=== PATIENT | female | born 1995 | race Caucasian/White ===

== ENCOUNTER 2020-09-10 20:11 | Emergency (ER) | payer OTHER ==
[2020-09-10 20:16] VITALS: BP 170/88; PULSE 108; RESP 20; TEMP 97.9
[2020-09-10] MEDS ORDERED: ACETAMINOPHEN TAB 325 MG TAB PO STA (20:37)
[2020-09-10] MEDS ORDERED: IBUPROFEN 600 MG STARTER PACK 4 TAB BTL PO STA (20:37)
--- NOTE | 2020-09-10 21:06 | ED ---
General Adult HPI - General Chief complaint: Fall Stated complaint: R ARM PAIN FELL IN PARKING STRUCTURE Time Seen by Provider: 09/10/20 20:24 Source: patient Mode of arrival: ambulatory - History of Present Illness Initial comments: 25 year-old female patient presents to the emergency department for evaluation of right wrist pain and right elbow pain that started after a fall today just prior to 7pm. Patient states she tripped off of a curb and fell with arm outstretched. She is having pain in her wrist and left elbow. 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 States she is having some tingling in her fingers. States she has increased pain with range of motion but does not have any limitations. Denies any head, neck, or back injury. Denies chance of . Patient denies any headache, neck pain, back pain, chest pain, shortness of breath, dizziness, weakness, abdominal pain, nausea, vomiting, or difficulties with bowel movements or urination. - Related Data Allergies Allergy/AdvReac Type Severity Reaction Status Date / Time No Known Allergies Allergy Verified 09/10/20 20:16 Review of Systems ROS Statement: Those systems with pertinent positive or pertinent negative responses have been documented in the HPI. ROS Other: All systems not noted in ROS Statement are negative. Past Medical History Past Medical History: No Reported History History of Any Multi-Drug Resistant Organisms: None Reported Past Surgical History: No Surgical Hx Reported Past Psychological History: No Psychological Hx Reported Smoking Status: Never smoker Past Alcohol Use History: None Reported Past Drug Use History: None Reported General Exam General appearance: alert, in no apparent distress, other (This a well- developed, well-nourished adult female patient in no acute distress. Vital signs upon presentation are temperature 97.9F, pulse 108, respirations 20, blood pressure 170/88, pulse ox 98% on room air.) Head exam: Present: atraumatic, normocephalic, normal inspection ENT exam: Present: normal exam, normal oropharynx, mucous membranes moist Neck exam: Present: normal inspection, full ROM, other (Nontender, no step-off, no deformity to firm midline palpation of the posterior cervical spine. Full range of motion without pain or limitation.). Absent: tenderness, meningismus, lymphadenopathy Respiratory exam: Present: normal lung sounds bilaterally. Absent: respiratory distress, wheezes, rales, rhonchi, stridor Cardiovascular Exam: Present: regular rate, normal rhythm, normal heart sounds. Absent: systolic murmur, diastolic murmur, rubs, gallop, clicks Extremities exam: Present: normal inspection, full ROM, tenderness (Right Anatomical snuffbox, right distal radius and ulna. Right Elbow.), normal capillary refill, other (Skin to the right arm is pink, warm, dry. Cap refill less than 3 seconds. Radial pulses 2+.). Absent: pedal edema, joint swelling, calf tenderness Back exam: Present: normal inspection. Absent: vertebral tenderness Neurological exam: Present: alert, oriented X3, CN II-XII intact Psychiatric exam: Present: normal affect, normal mood Skin exam: Present: warm, dry, intact, normal color. Absent: rash Course Vital Signs 09/10/20 20:14 Temperature 97.9 F Pulse Rate 108 H Respiratory 20 Rate Blood Pressure 170/88 O2 Sat by Pulse 98 Oximetry Procedures - Orthopedic Splinting/Casting Injury #1 Side: right Upper Extremity Injury Location: short arm, wrist Upper Extremity Immobilizer: thumb spica, Mumtaz wrap, synthetic pre-padded splint Additional Comments: Neurovascular status intact after splint application. Skin to the hands pink, warm, dry. Cap refill less than 3 seconds. Patient denies numbness or tingling currently. Medical Decision Making - Medical Decision Making 25-year-old female patient presents the emergency department today for evaluation of right wrist pain and right elbow pain after experiencing a fall. Physical examination revealed right anatomical snuffbox tenderness. She did have full range of motion with no limitation. No soft tissue swelling, no e cchymosis, no abrasion. X-rays were obtained of the right elbow and the wrist. X-rays were negative for acute fracture. Given anatomical snuffbox tenderness she was placed in a thumb spica splint will be discharged to follow-up with orthopedics as soon as possible. She is instructed to leave the splint in place until follow-up. Return parameters were discussed in detail. She verbalizes understanding and agrees with this plan. My attending is Dr. Mark. - Radiology Data Radiology results: report reviewed, image reviewed 4 views of the right wrist are obtained. Report was reviewed in its entirety. Impression by Dr. Rendon shows negative right wrist exam. 3 views of the right elbow obtained. Report was reviewed in its entirety. Impression by Dr. Rendon shows negative right elbow exam. Disposition Clinical Impression: Wrist pain, Sprain of right elbow Disposition: HOME SELF-CARE Condition: Good Instructions (If sedation given, give patient instructions): Wrist Injury (ED), Elbow Sprain (ED) Additional Instructions: Use Mumtaz wrap for comfort is appropriate. Lives with the place until follow-up with orthopedics. Take Tylenol Motrin for pain control. Apply ice to the painful areas. Return to the emergency department for any new, worsening, or concerning symptoms. Is patient prescribed a controlled substance at d/c from ED?: No Referrals: Henry Ramirez DO [Primary Care Provider] - 1-2 days Antione Quinonez DO [Doctor of Osteopathic Medicine] - 1-2 days Time of Disposition: 21:30
--- NOTE | 2020-09-10 21:13 | XR ---
EXAMINATION TYPE: XR wrist complete RT DATE OF EXAM: 09/10/2020 COMPARISON: NONE HISTORY: Pain TECHNIQUE: 4 views FINDINGS: Carpal bones are intact. I see no fracture nor dislocation. Joint spaces are normal. Metaca rpals are intact. Scaphoid appears normal. IMPRESSION: Negative right wrist exam.
--- NOTE | 2020-09-10 21:25 | XR ---
EXAMINATION TYPE: XR elbow complete RT DATE OF EXAM: 09/10/2020 COMPARISON: NONE HISTORY: Elbow pain TECHNIQUE: 3 views FINDINGS: I see no fracture nor dislocation. Joint spaces are normal. There are no pathologic calcifi cations. There is no evidence of elbow joint effusion. IMPRESSION: Negative right elbow exam.
== END 2020-09-10 21:40 | disposition home or self-care (01) ==
LOC: EC 20:11
DX: S53.401A Unspecified sprain of right elbow, initial encounter (principal); W01.0XXA Fall on same level from slipping, tripping and stumbling without subsequent striking against object, initial encounter
CPT/HCPCS: 29125; 99283

== ENCOUNTER → 2020-12-28 | Outpatient (CLI) | payer MEDICAID | END | disposition home or self-care (01) | LOC: LABWHC1 10:34 | PROVIDERS: ATTEND Emergency Medicine | DX: Z20.822 Contact with and (suspected) exposure to COVID-19 (principal) | CPT/HCPCS: 87635; C9803 ==

== ENCOUNTER → 2021-05-11 | Outpatient (CLI) | payer MEDICAID, OTHER | END | disposition home or self-care (01) | LOC: LABWHC1 09:14 | PROVIDERS: ATTEND Emergency Medicine | DX: U07.1 COVID-19 (principal) | CPT/HCPCS: 87635 ==

== ENCOUNTER 2021-10-11 12:15 | Emergency (ER) | payer SELFPAY ==
[2021-10-11 12:31] VITALS: TEMP 98
[2021-10-11] MEDS ORDERED: SODIUM CHLORIDE 0.9% 1,000 ML IV ONE (15:10)
[2021-10-11] MEDS ORDERED: ACETAMINOPHEN TAB 325 MG TAB PO STA (15:10)
[2021-10-11 15:52] LABS: Basophils # (A) 0.1 k/uL (0-0.2); Basophils % (A) 0 %; Eosinophils # (A) 0.2 k/uL (0-0.7); Eosinophils % (A) 1 %; HCT 40.2 % (34.0-46.0); HGB 12.4 gm/dL (11.4-16.0); Lymphocytes # (A) 2.2 k/uL (1.0-4.8); Lymphocytes % (A) 18 %; MCH 26.4 pg (25.0-35.0); MCHC 30.8 g/dL (31.0-37.0); MCV 85.7 fL (80.0-100.0); Mean Platelet Volume 7.9; Monocytes # (A) 0.5 k/uL (0-1.0); Monocytes % (A) 4 %; Neutrophils # (A) 9.6 k/uL (1.3-7.7); Neutrophils % (A) 76 %; Platelet Count 312 k/uL (150-450); RBC 4.69 m/uL (3.80-5.40); RDW 14.5 % (11.5-15.5); WBC 12.7 k/uL (3.8-10.6)
[2021-10-11 16:14] LABS: ALT 19 U/L (4-34); AST 22 U/L (14-36); African American GFR (CKD) >90 (>60 ml/min/1.73 sqM); Albumin 4.2 g/dL (3.5-5.0); Alkaline Phosphatase 40 U/L (38-126); Anion Gap 8 mmol/L; Blood Urea Nitrogen 7 mg/dL (7-17); Budding Yeast,Urine Many /hpf; Calcium 8.8 mg/dL (8.4-10.2); Carbon Dioxide 23 mmol/L (22-30); Chloride 106 mmol/L (98-107); Glucose 92 mg/dL (74-99); Non-African American GFR(CKD) >90 (>60 ml/min/1.73 sqM); Potassium 3.9 mmol/L (3.5-5.1); RBC,Urine >182 /hpf (0-5); Sodium 137 mmol/L (137-145); Squamous Epithelial Cell,Urine 3 /hpf (0-4); Total Bilirubin 0.3 mg/dL (0.2-1.3); Total Protein 7.2 g/dL (6.3-8.2)
--- NOTE | 2021-10-11 16:17 | US ---
EXAMINATION TYPE: US transvaginal DATE OF EXAM: 10/11/2021 COMPARISON: NONE CLINICAL HISTORY: heavy vaginal bleeding. TECHNIQUE: Transvaginal (TV). Date of LMP: 10-10-21 EXAM MEASUREMENTS: Uterus: 8.3 x 4.0 x 4.6 cm Endometrial Stripe: 0.8 cm Right Ovary: 2.8 x 1.7 x 1.8 cm Left Ovary: 3.1 x 2.6 x 2.5 cm 1. Uterus: Anteverted 2. Endometrium: wnl 3. Right Ovary: wnl 4. Left Ovary: wnl 5. Bilateral Adnexa: wnl 6. Posterior cul-de-sac: wnl Heterogeneous uterus. Endometrial stripe measures 8 mm in thickness which is upper limits of normal f or proliferative phase of menstrual cycle. No free fluid. Both ovaries are seen and normal and symmetric in size. No concerning adnexal masses noted. IMPRESSION: Source of patient's symptoms of heavy vaginal bleeding not clearly identified.
[2021-10-11 16:29] LABS: Appearance,Urine Bloody (Clear)
[2021-10-11 16:30] LABS: Color,Urine Red
[2021-10-11 16:35] LABS: HCG,Quantitative Serum <2.4 mIU/mL
[2021-10-11] MEDS ORDERED: FLUCONAZOLE 150 MG TAB PO STA (17:09)
--- NOTE | 2021-10-11 17:11 | ED ---
General Adult HPI - General Chief complaint: Vaginal Bleeding Stated complaint: Female Time Seen by Provider: 10/11/21 14:59 Source: patient Mode of arrival: ambulatory Limitations: no limitations - History of Present Illness Initial comments: Patient is a 26-year-old female presenting with chief complaint of vaginal bleeding. Patient states that for the last 5 weeks she has had heavy vaginal bleeding every other week. She states that today she is having to change her heavy flow tampons every hour and is passing large clots. She states that she did take Levonorgestrel prior to these episodes. She admits to pelvic cramping. She denies any upper abdominal pain, chest pain, shortness of breath, nausea, vomiting, dysuria, flank pain, purulent vaginal discharge, fever, chills, diarrhea, constipation, hematochezia, melena. - Related Data Home Medications Medication Instructions Recorded Confirmed No Known Home Medications 10/11/21 10/11/21 Allergies Allergy/AdvReac Type Severity Reaction Status Date / Time No Known Allergies Allergy Verified 10/11/21 17:42 Review of Systems ROS Statement: Those systems with pertinent positive or pertinent negative responses have been documented in the HPI. ROS Other: All systems not noted in ROS Statement are negative. Past Medical History Past Medical History: No Reported History History of Any Multi-Drug Resistant Organisms: None Reported Past Surgical History: No Surgical Hx Reported Past Psychological History: No Psychological Hx Reported Smoking Status: Never smoker Past Alcohol Use History: None Reported Past Drug Use History: None Reported General Exam Limitations: no limitations General appearance: alert, in no apparent distress Head exam: Present: atraumatic, normocephalic, normal inspection Eye exam: Present: normal appearance, EOMI. Absent: scleral icterus Neck exam: Present: normal inspection Respiratory exam: Present: normal lung sounds bilaterally. Absent: respiratory distress, wheezes, rales, rhonchi, stridor Cardiovascular Exam: Present: regular rate, normal rhythm, normal heart sounds. Absent: systolic murmur, diastolic murmur, rubs, gallop, clicks GI/Abdominal exam: Present: soft, normal bowel sounds. Absent: distended, tenderness, guarding, rebound, rigid External exam: Present: normal external exam Speculum exam: Present: normal speculum exam, vaginal bleeding (1.5 swabs used to wipe away blood for visualization) By manual exam: Present: normal by manual exam. Absent: cervical motion tenderness, adnexal tenderness Back exam: Present: normal inspection. Absent: CVA tenderness (R), CVA tenderness (L) Neurological exam: Present: alert, oriented X3, CN II-XII intact Psychiatric exam: Present: normal affect, normal mood Skin exam: Present: warm, dry, intact, normal color. Absent: rash Course Vital Signs 10/11/21 10/11/21 10/11/21 12:29 15:43 18:07 Temperature 98 F Pulse Rate 94 97 87 Respiratory 20 15 16 Rate Blood Pressure 192/90 135/74 130/83 O2 Sat by Pulse 99 98 100 Oximetry Medical Decision Making - Medical Decision Making Patient is a 26-year-old female presenting with chief complaint of heavy vaginal bleeding. This has been going on for every other week for the past 5 weeks. She admits to pelvic cramping and passing large clots. Lab work shows no signs of anemia, urine shows yeast. Transvaginal ultrasound is unremarkable. Pelvic exam shows no signs of hemorrhaging, there is no cervical motion tenderness or adnexal tenderness. Patient educated on these findings, sent out STI testing. Patient was treated for yeast infection. She appears stable for discharge with outpatient follow-up at this time. Follow-up with [facility] and PCP in one to 2 days. Report back to ER if any worsening symptoms. Patient conveyed verbal understanding and agreed to the plan. I discussed this case with my attending Dr. Dallas. - Lab Data Result diagrams: 10/11/21 15:20 10/11/21 15:20 Lab Results 10/11/21 10/11/21 10/11/21 Range/Units 15:20 15:20 15:20 WBC 12.7 H (3.8-10.6) k/uL RBC 4.69 (3.80-5.40) m/uL Hgb 12.4 (11.4-16.0) gm/dL Hct 40.2 (34.0-46.0) % MCV 85.7 (80.0-100.0) fL MCH 26.4 (25.0-35.0) pg MCHC 30.8 L (31.0-37.0) g/dL RDW 14.5 (11.5-15.5) % Plt Count 312 (150-450) k/uL MPV 7.9 Neutrophils % 76 % Lymphocytes % 18 % Monocytes % 4 % Eosinophils % 1 % Basophils % 0 % Neutrophils # 9.6 H (1.3-7.7) k/uL Lymphocytes # 2.2 (1.0-4.8) k/uL Monocytes # 0.5 (0-1.0) k/uL Eosinophils # 0.2 (0-0.7) k/uL Basophils # 0.1 (0-0.2) k/uL Sodium (137-145) mmol/L Potassium (3.5-5.1) mmol/L Chloride (98-107) mmol/L Carbon Dioxide (22-30) mmol/L Anion Gap mmol/L BUN (7-17) mg/dL Creatinine (0.52-1.04) mg/dL Est GFR (CKD-EPI)AfAm (>60 ml/min/1.73 sqM) Est GFR (CKD-EPI)NonAf (>60 ml/min/1.73 sqM) Glucose (74-99) mg/dL Calcium (8.4-10.2) mg/dL Total Bilirubin (0.2-1.3) mg/dL AST (14-36) U/L ALT (4-34) U/L Alkaline Phosphatase (38-126) U/L Total Protein (6.3-8.2) g/dL Albumin (3.5-5.0) g/dL HCG, Quant mIU/mL Urine Color Red Urine Appearance Bloody H (Clear) Urine RBC >182 H (0-5) /hpf Ur Squamous Epith Cells 3 (0-4) /hpf Urine Yeast (Budding) Many H (None) /hpf Urine HCG, Qual Not Detected (Not Detectd) Trichomonas Ag (Rapid) (Negative) Blood Type Blood Type Confirm Blood Type Recheck Bld Type Recheck Status Antibody Screen Spec Expiration Date 10/11/21 10/11/21 10/11/21 Range/Units 15:20 15:25 15:34 WBC (3.8-10.6) k/uL RBC (3.80-5.40) m/uL Hgb (11.4-16.0) gm/dL Hct (34.0-46.0) % MCV (80.0-100.0) fL MCH (25.0-35.0) pg MCHC (31.0-37.0) g/dL RDW (11.5-15.5) % Plt Count (150-450) k/uL MPV Neutrophils % % Lymphocytes % % Monocytes % % Eosinophils % % Basophils % % Neutrophils # (1.3-7.7) k/uL Lymphocytes # (1.0-4.8) k/uL Monocytes # (0-1.0) k/uL Eosinophils # (0-0.7) k/uL Basophils # (0-0.2) k/uL Sodium 137 (137-145) mmol/L Potassium 3.9 (3.5-5.1) mmol/L Chloride 106 (98-107) mmol/L Carbon Dioxide 23 (22-30) mmol/L Anion Gap 8 mmol/L BUN 7 (7-17) mg/dL Creatinine 0.53 (0.52-1.04) mg/dL Est GFR (CKD-EPI)AfAm >90 (>60 ml/min/1.73 sqM) Est GFR (CKD-EPI)NonAf >90 (>60 ml/min/1.73 sqM) Glucose 92 (74-99) mg/dL Calcium 8.8 (8.4-10.2) mg/dL Total Bilirubin 0.3 (0.2-1.3) mg/dL AST 22 (14-36) U/L ALT 19 (4-34) U/L Alkaline Phosphatase 40 (38-126) U/L Total Protein 7.2 (6.3-8.2) g/dL Albumin 4.2 (3.5-5.0) g/dL HCG, Quant <2.4 mIU/mL Urine Color Urine Appearance (Clear) Urine RBC (0-5) /hpf Ur Squamous Epith Cells (0-4) /hpf Urine Yeast (Budding) (None) /hpf Urine HCG, Qual (Not Detectd) Trichomonas Ag (Rapid) (Negative) Blood Type A Positive Blood Type Confirm A Positive Blood Type Recheck No Previous Record Bld Type Recheck Status CABO Indicated Antibody Screen NEGATIVE Spec Expiration Date 10/14/2021 - 232410/11/21 Range/Units 17:33 WBC (3.8-10.6) k/uL RBC (3.80-5.40) m/uL Hgb (11.4-16.0) gm/dL Hct (34.0-46.0) % MCV (80.0-100.0) fL MCH (25.0-35.0) pg MCHC (31.0-37.0) g/dL RDW (11.5-15.5) % Plt Count (150-450) k/uL MPV Neutrophils % % Lymphocytes % % Monocytes % % Eosinophils % % Basophils % % Neutrophils # (1.3-7.7) k/uL Lymphocytes # (1.0-4.8) k/uL Monocytes # (0-1.0) k/uL Eosinophils # (0-0.7) k/uL Basophils # (0-0.2) k/uL Sodium (137-145) mmol/L Potassium (3.5-5.1) mmol/L Chloride (98-107) mmol/L Carbon Dioxide (22-30) mmol/L Anion Gap mmol/L BUN (7-17) mg/dL Creatinine (0.52-1.04) mg/dL Est GFR (CKD-EPI)AfAm (>60 ml/min/1.73 sqM) Est GFR (CKD-EPI)NonAf (>60 ml/min/1.73 sqM) Glucose (74-99) mg/dL Calcium (8.4-10.2) mg/dL Total Bilirubin (0.2-1.3) mg/dL AST (14-36) U/L ALT (4-34) U/L Alkaline Phosphatase (38-126) U/L Total Protein (6.3-8.2) g/dL Albumin (3.5-5.0) g/dL HCG, Quant mIU/mL Urine Color Urine Appearance (Clear) Urine RBC (0-5) /hpf Ur Squamous Epith Cells (0-4) /hpf Urine Yeast (Budding) (None) /hpf Urine HCG, Qual (Not Detectd) Trichomonas Ag (Rapid) Negative (Negative) Blood Type Blood Type Confirm Blood Type Recheck Bld Type Recheck Status Antibody Screen Spec Expiration Date Disposition Clinical Impression: Dysfunctional uterine bleeding, Candidiasis of female genitalia Disposition: HOME SELF-CARE Condition: Good Instructions (If sedation given, give patient instructions): Abnormal (Dysfunctional) Uterine Bleeding (ED), Dysmenorrhea (ED), Yeast Infection (ED) Additional Instructions: Follow-up with PCP and [facility] in one to 2 days. Report back to ER with any worsening symptoms. Take medication as prescribed. Is patient prescribed a controlled substance at d/c from ED?: No Referrals: Henry Ramirez DO [Primary Care Provider] - 1-2 days Time of Disposition: 17:10
[2021-10-11 18:08] VITALS: BP 130/83; PULSE 87; RESP 16
[2021-10-13 15:14] LABS: C. trachomatis,PCR Negative (Neg,Equiv); Chlamydia trachomatis Source Vagina; N. gonorrhoeae,PCR Negative (Neg,Equiv); Neisseria Source Vagina
== END 2021-10-11 18:08 | disposition home or self-care (01) ==
LOC: EC 12:15
DX: N93.8 Other specified abnormal uterine and vaginal bleeding (principal); B37.3 Candidiasis of vulva and vagina
CPT/HCPCS: 36415; 76830; 80053; 81025; 84702; 85025; 86850; 86900; 86901; 87070; 87491; 87591; 87808; 96360; 99284